=== PATIENT | male | born 1990 | race Caucasian/White ===

== ENCOUNTER 2018-12-01 15:41 | Emergency (ER) | payer BC ==
[2018-12-01 15:56] VITALS: BP 137/79
--- NOTE | 2018-12-01 16:05 | UC ---
General HPI - HPI Summary HPI Summary: pt states he fell off a ladder about 1 month ago and landed on his R heel. he has been having pain ever since. he gets temporary relief with advil. he never got an xray because he was able to walk on it the day after his fall. - History of Current Complaint Chief Complaint: UCLowerExtremity Stated Complaint: RIGHT FOOT INJURY Time Seen by Provider: 12/01/18 15:53 Hx Obtained From: Patient Onset/Duration: Sudden Onset Timing: Constant Pain Intensity: 2 Aggravating: weight bearing Associated Signs & Symptoms: Negative: Edema, Fever - Allergy/Home Medications Allergies/Adverse Reactions: Allergies Allergy/AdvReac Type Severity Reaction Status Date / Time No Known Allergies Allergy Verified 12/01/18 15:56 PMH/Surg Hx/FS Hx/Imm Hx Previously Healthy: Yes - Surgical History Surgical History: Yes Surgery Procedure, Year, and Place: R knee surgery 2005 - Family History Known Family History: Positive: Non-Contributory - Social History Alcohol Use: Occasionally Substance Use Type: None Smoking Status (MU): Never Smoked Tobacco Review of Systems All Other Systems Reviewed And Are Negative: No Constitutional: Negative: Fever Skin: Negative: Rash Musculoskeletal: Negative: Decreased ROM, Edema Neurological: Negative: Numbness Physical Exam Triage Information Reviewed: Yes Appearance: Well-Appearing Vital Signs: Initial Vital Signs Temp 97.1 F 12/01/18 15:51 Pulse 74 12/01/18 15:51 Resp 16 12/01/18 15:51 BP 137/79 12/01/18 15:51 Pulse Ox 100 12/01/18 15:51 Vital Signs Reviewed: Yes Cardiovascular: Positive: RRR Musculoskeletal: Positive: Other: - RLE: hip, knee and ankle are without deformity or tenderness. The foot is without swelling or deformity but the medial heel is tender. s/v/m is intact to the RLE. Neurological: Positive: Alert Psychological: Positive: Age Appropriate Behavior Skin Exam: Normal Skin: Negative: Rashes Diagnostics - Radiology No standard instances Radiology Interpretation Completed By: Radiologist - FOOT/CALCANEAL BONES=NO FX Course/Dx - Differential Dx - Multi-Symptom Differential Diagnoses: Other - no concern for infection. no fx or dislocation. - Diagnoses Provider Diagnosis: Heel pain Discharge - Sign-Out/Discharge Documenting (check all that apply): Patient Departure All imaging exams completed and their final reports reviewed: Yes - Discharge Plan Condition: Stable Disposition: HOME Prescriptions: Naproxen [Naprosyn 500 mg tab] 500 mg PO BID PRN #15 tablet PRN Reason: Pain Patient Education Materials: Foot Contusion (ED) Referrals: Rajeev Wynn MD [Medical Doctor] - As Soon As Possible Additional Instructions: OBTAIN A HEEL CUSHION FOR SHOE SHOE FROM ANY PHARMACY. - Billing Disposition and Condition Condition: STABLE Disposition: Home
== END 2018-12-01 16:45 | disposition home or self-care (01) ==
LOC: UCCORT 15:41
DX: M79.671 Pain in right foot (principal); W11.XXXA Fall on and from ladder, initial encounter; Y92.9 Unspecified place or not applicable
CPT/HCPCS: 99202; G0463